=== PATIENT | male | born 1950 | race Two or more races ===

== ENCOUNTER 2018-12-21 08:24 | Day surgery (SDC) | payer MEDICARE, MEDICAID ==
[2018-12-19 16:37] LABS: BASOPHILS # (AUTO) 0.1 X10'3 (0-0.2); BASOPHILS % (AUTO) 0.7 % (0-1); EOSINOPHILS % (AUTO) 0.3 % (0-6); HEMATOCRIT 41.9 % (42.0-52.0); LYMPHOCYTES # (AUTO) 1.8 X10'3 (1.1-4.8); LYMPHOCYTES % (AUTO) 24.6 % (21-51); MEAN CORPUSCULAR HEMOGLOBIN 30.5 PG (27.0-31.0); MEAN CORPUSCULAR HGB CONC 33.4 g/dL (33.0-36.5); MEAN CORPUSCULAR VOLUME 91.3 FL (78-98); MEAN PLATELET VOLUME 8.1 FL (7.4-10.4); MONOCYTES # (AUTO) 0.6 X10'3 (0-0.9); MONOCYTES % (AUTO) 8.1 % (2-12); NEUTROPHILS # (AUTO) 4.7 X10'3 (1.8-7.7); NEUTROPHILS % (AUTO) 66.3 % (42-75); PLATELET COUNT 368 X10'3 (140-440); RED BLOOD COUNT 4.59 X10'6 (4.70-6.10); RED CELL DISTRIBUTION WIDTH 17.9 % (11.5-14.5); WHITE BLOOD COUNT 7.2 X10'3 (4.5-11.0)
[2018-12-19 16:46] LABS: ALBUMIN 3.5 G/DL (3.4-5.0); ANION GAP 11 (8-16); BLOOD UREA NITROGEN 22 MG/DL (7-18); CALCIUM 9.9 MG/DL (8.5-10.1); CHLORIDE 89 MMOL/L (99-107); CREATININE 1.22 MG/DL (0.60-1.10); GLUCOSE 103 MG/DL (70-104); SODIUM 129 MMOL/L (135-145); eGFR 59 ML/MIN
[2018-12-19 16:51] LABS: PARTIAL THROMBOPLASTIN TIME 29 SECONDS (22-32)
[2018-12-19 17:18] LABS: POTASSIUM 2.7 MMOL/L (3.5-5.1)
[2018-12-21] VITALS (10 sets, daily range): BP systolic 97–139; BP diastolic 54–77
[~2018-12-21] VITALS: Ht 175.3 cm; Wt 76.6 kg
[2018-12-21] MEDS ORDERED: MIRT30TA8 PO (08:53)
[2018-12-21] MEDS ORDERED: LYR75C PO (08:53)
[2018-12-21] MEDS ORDERED: GABA600T13 PO (08:53)
[2018-12-21] MEDS ORDERED: SERT100T10 PO (08:53)
[2018-12-21] MEDS ORDERED: CYCL-1 PO (08:53)
[2018-12-21] MEDS ORDERED: FLUT1BLS12 (08:53)
[2018-12-21] MEDS ORDERED: FOLI1TAB16 PO (08:53)
[2018-12-21] MEDS ORDERED: MONT10TA21 PO (08:53)
[2018-12-21] MEDS ORDERED: AMLO10TA PO (08:53)
[2018-12-21] MEDS ORDERED: THIA100T66 PO (09:03)
[2018-12-21] MEDS ORDERED: ALBU18HF2 INH (09:03)
[2018-12-21] MEDS ORDERED: TIOT18CA3 (09:03)
[2018-12-21] MEDS ORDERED: FLO0.4C PO (09:03)
[2018-12-21] MEDS ORDERED: potassium CL 10mEq/100ml bag 100 ML IV PRN (09:35)
[2018-12-21] MEDS ORDERED: potassium Cl 20 mEq SR tablet PO PRN (09:35)
[2018-12-21] MEDS ORDERED: midazolam 2 mg/2 ml injection ONE (09:40)
[2018-12-21] MEDS ORDERED: verapamil 2.5 mg/ml inj IV ONE (09:40)
[2018-12-21] MEDS ORDERED: fentaNYL/PF 50MCG/1 ML 2ML syringe ONE (09:40)
[2018-12-21] MEDS ORDERED: LIDOcaine 1% (10mg/ml)w/preservative injection 20ml MDV ONE (09:40)
[2018-12-21] MEDS ORDERED: heparin 1,000unit/ml 10ml vial 10 ML ONE (09:41)
[2018-12-21] MEDS ORDERED: iohexol 350MG/ML 100ml bottle IV ONE (09:41)
[2018-12-21] MEDS ORDERED: nitroGLYCERIN-Tridil 50MG/D5W 250 ML IV ONE (09:41)
[2018-12-21] MEDS ORDERED: iohexol 350 MG/ML 50ML vial IV ONE (09:41)
[2018-12-21] MEDS ORDERED: LORazepam 0.5 MG tablet PO PRN (10:00)
[2018-12-21] MEDS ORDERED: potassium Cl 40MEQ/NS 500ml 500 ML IV SCH (10:00)
[2018-12-21] MEDS ORDERED: diphenhydrAMINE 25mg capsule PO PRN (10:00)
[2018-12-21] MEDS ORDERED: normal saline 1,000 ML IV SCH (10:00)
[2018-12-21] MEDS ORDERED: potassium Cl 20 mEq SR tablet PO STA (12:40)
[2018-12-21 14:30] LABS: ISTAT Hct MIX 37 %PCV (42-52); ISTAT O2 SATURATION MIX VENOUS 63 % (60-80); ISTAT SOURCE MIX
[2018-12-21 14:30] LABS: ISTAT HGB ART 13.6 g/dl (14.0-18.0); ISTAT Hct ART 40 %PCV (42-52); ISTAT O2 SATURATION ARTERIAL 94 % (95-98); ISTAT SOURCE ART
[2018-12-21 14:33] LABS: ALBUMIN 3.1 G/DL (3.4-5.0); ANION GAP 10 (8-16); BLOOD UREA NITROGEN 19 MG/DL (7-18); BUN/CREATININE RATIO 19.6 (5.4-32.0); CALCIUM 8.7 MG/DL (8.5-10.1); CHLORIDE 96 MMOL/L (99-107); CREATININE 0.97 MG/DL (0.60-1.10); GLUCOSE 95 MG/DL (70-104); POTASSIUM 3.4 MMOL/L (3.5-5.1); SODIUM 132 MMOL/L (135-145); TOTAL CARBON DIOXIDE 26.4 MMOL/L (24-32); eGFR 77 ML/MIN
[2018-12-21] MEDS ORDERED: normal saline 1000ml 1,000 ML IV ONE (15:00)
== END 2018-12-21 19:20 | disposition home or self-care (01) ==
LOC: SSTAY O 08:24
PROVIDERS: ATTEND Internal Medicine Cardiovascular Disease
DX: I25.10 Atherosclerotic heart disease of native coronary artery without angina pectoris (principal); R07.9 Chest pain, unspecified; R94.30 Abnormal result of cardiovascular function study, unspecified; I10 Essential (primary) hypertension; Z87.891 Personal history of nicotine dependence; J44.9 Chronic obstructive pulmonary disease, unspecified; R06.02 Shortness of breath; R53.83 Other fatigue; F10.10 Alcohol abuse, uncomplicated; G62.9 Polyneuropathy, unspecified
CPT/HCPCS: 36415; 80048; 82803; 84132; 85014; 85025; 85610; 85730; 93005; 93460; C1769; J1644; J2001; J2250; J3010; J3480; J7030; Q0163; Q9967; 99152; 99153; A4620; A5120; A6258; C1794; J3490